=== PATIENT | male | born 1960 | race African-American/Black ===

== ENCOUNTER 2022-03-29 08:33 | Inpatient (IN) | payer MEDICAID, OTHER ==
[~2022-03-29] VITALS: Ht 177.8 cm; Wt 76.4 kg
[2022-03-29] MEDS ORDERED: SODIUM CHLORIDE 0.9% 500 ML IV ONE (08:45)
[2022-03-29 09:36] LABS: HEMOGLOBIN. 12.1 g/dL (14.0-18.0); MEAN CORPUSCULAR HEMOGLOBIN 28.7 pg (28.0-32.0); MEAN CORPUSCULAR VOLUME 87.8 fL (80.0-94.0); MEAN PLATELET VOLUME 8.6 fl (7.4-10.4); PLATELET 292 x1000/uL (130-400); RED BLOOD CELL COUNT 4.22 mill/uL (4.7-6.1); RED CELL DISTRIBUTION WIDTH 16.1 % (11.6-14.6)
[2022-03-29 09:42] LABS: CHLORIDE 99 mEq/L (98-107)
[2022-03-29 09:43] LABS: INR 1.1; PROTHROMBIN TIME 11.3 sec (9.6-11.0)
[2022-03-29 10:12] LABS: PLATELET ESTIMATE NORMAL
[2022-03-29 10:38] LABS: CLARITY URINE CLEAR (CLEAR); COLOR URINE YELLOW (YELLOW); KETONES URINE NEGATIVE (NEGATIVE); LEUKOCYTE ESTERASE URINE NEGATIVE (NEGATIVE); NITRITE URINE NEGATIVE (NEGATIVE); OCCULT BLOOD URINE TRACE (NEGATIVE); PH URINE 8.5 (4.5-8.0); PROTEIN URINE 2+ (NEGATIVE); SPECIFIC GRAVITY URINE 1.007 (1.005-1.030); UROBILINOGEN URINE 0.2 E.U./dL (0.2-1.0)
[2022-03-29] MEDS ORDERED: ENOXAPARIN 80MG/0.8ML SYR SUBCUT ONE (13:00)
[2022-03-29] MEDS ORDERED: METOPROLOL TARTRATE 50MG TABLET PO NR (13:00)
[2022-03-29] MEDS ORDERED: DILTIAZEM HCL 5MG/ML 5ML VIAL IV PRN (13:15)
[2022-03-29] MEDS ORDERED: ACETAMINOPHEN 325MG TABLET PO PRN (13:30)
[2022-03-29] MEDS ORDERED: AMIODARONE HCL 150 MG in DEXT 5% WATER 100 ML IV NR (13:30)
[2022-03-29] MEDS ORDERED: ONDANSETRON HCL 4MG/2ML INJ IV PRN (13:30)
[2022-03-29] MEDS ORDERED: IOHEXOL-350 100 ML BOTTLE ONE (15:11)
[2022-03-29] MEDS ORDERED: METOPROLOL TARTRATE 50MG TABLET PO SCH (21:00)
[2022-03-30 00:57] VITALS: BP 118/79
[2022-03-30 01:04] VITALS: BP 118/79
[2022-03-30] MEDS ORDERED: ALBU6.7H3 INH (01:14)
[2022-03-30] MEDS ORDERED: CALC667C MT (01:14)
[2022-03-30] MEDS ORDERED: ASPI-1497 MT (01:14)
[2022-03-30] MEDS ORDERED: FURO80TA3 MT (01:14)
[2022-03-30] MEDS ORDERED: SITA25TA3 MT (01:14)
[2022-03-30] MEDS ORDERED: CARV6.2548 MT (01:14)
[2022-03-30] MEDS ORDERED: LOSA25TA26 MT (01:14)
[2022-03-30] MEDS ORDERED: *PATIENT'S OWN MEDICATION STORAGE XX SCH (01:15)
[2022-03-30] MEDS ORDERED: IPRATROPIUM/ALBUTEROL 0.5-3(2.5)MG/3ML NEB HHN PRN (01:30)
[2022-03-30] MEDS ORDERED: IPRATROPIUM BROMIDE (0.02%) 0.5MG/2.5ML NEB HHN PRN (01:45)
[2022-03-30] MEDS ORDERED: ALBUTEROL (0.083%) 2.5MG/3ML NEB HHN PRN (01:45)
[2022-03-30 04:00] VITALS: BP 107/78
[2022-03-30 08:22] VITALS: BP 133/86
[2022-03-30] MEDS ORDERED: CALCIUM ACETATE 667MG CAPSULE PO SCH (09:00)
[2022-03-30] MEDS ORDERED: LOSARTAN POTASSIUM 25 MG TABLET PO SCH (09:00)
[2022-03-30] MEDS ORDERED: FUROSEMIDE 40MG TABLET PO SCH (09:00)
[2022-03-30] MEDS ORDERED: LINAGLIPTIN 5MG TABLET PO SCH (09:00)
[2022-03-30] MEDS ORDERED: ASPIRIN 81MG EC TABLET PO SCH (09:00)
[2022-03-30] MEDS ORDERED: MEDICATION NOT ON FORMULARY EA (Sitagliptin Phosphate (Januvia) 1 TAB) MT SCH (09:00)
[2022-03-30] MEDS ORDERED: CARVEDILOL 6.25 MG TABLET PO SCH (09:00)
[2022-03-30] MEDS ORDERED: APIX5TAB MT (11:42)
[2022-03-30 12:18] VITALS: BP 133/78
[2022-03-30 12:29] VITALS: BP 132/78
== END 2022-03-30 16:24 | disposition home or self-care (01) | DRG 201 ==
LOC: ER 08:33 → EDBEDREQ 10:49 → EDBEDREQSVC 10:49 → MICUSO 11:43 → EDBEDREQTM 11:54 → EDBEDREQ 11:54 → 7WST 03-30 00:46
PROVIDERS: ADMIT Internal Medicine; ATTEND Internal Medicine
DX: I48.92 Unspecified atrial flutter (principal); I50.23 Acute on chronic systolic (congestive) heart failure; N18.6 End stage renal disease; E11.22 Type 2 diabetes mellitus with diabetic chronic kidney disease; D63.1 Anemia in chronic kidney disease; I13.2 Hypertensive heart and chronic kidney disease with heart failure and with stage 5 chronic kidney disease, or end stage renal disease; E05.90 Thyrotoxicosis, unspecified without thyrotoxic crisis or storm; E78.5 Hyperlipidemia, unspecified; R74.01 Elevation of levels of liver transaminase levels; F17.200 Nicotine dependence, unspecified, uncomplicated; Z99.2 Dependence on renal dialysis
CPT/HCPCS: 36415; 71045; 71275; 80053; 81003; 83605; 84145; 84439; 84443; 84484; 85025; 85379; 93005; 93306; 99285; J0282; J1650; J7030; J7060; Q9967